=== PATIENT | female | born 1950 | race Caucasian/White ===

== ENCOUNTER 2016-11-09 10:54 | Day surgery (SDC) | payer BC ==
[~2016-11-09 10:54] MED LIST: RINGERS SOLUTION,LACTATED 1,000 ML IV PRN; ceFAZolin SODIUM 1 GM VIAL IV PRN
[2016-11-09] MEDS ORDERED: RINGERS SOLUTION,LACTATED 1,000 ML IV ONE ×2 (12:35→15:45)
[2016-11-09] MEDS ORDERED: HYDROmorphone HCL 2 MG/ML VIAL IV PRN (18:15)
[2016-11-09] MEDS ORDERED: oxyCODONE HCL/ACETAMINOPHEN 1 TAB TABLET PO PRN (18:15)
[2016-11-09] MEDS ORDERED: diphenhydrAMINE HCL 50 MG/ML VIAL IV PRN (18:46)
[2016-11-09] MEDS ORDERED: ACETAMINOPHEN 500 MG TABLET PO PRN (18:46)
[2016-11-09] MEDS ORDERED: ONDANSETRON HCL/PF 2 MG/ML VIAL IV PRN (18:47)
[2016-11-09] MEDS ORDERED: SOD PHOS M B RC PRN (18:48)
[2016-11-09] MEDS ORDERED: PROMETHAZINE HCL 25 MG in DEXTROSE 5 % IN WATER 50 ML IV PRN ×2 (18:48)
[2016-11-09] MEDS ORDERED: NA PHOS DI BA RC PRN (18:48)
[2016-11-09] MEDS ORDERED: ZOLPIDEM TARTRATE 5 MG TABLET PO PRN (18:49)
[2016-11-09] MEDS ORDERED: MAG HYDROX/ALUMINUM HYD/SIMETH 30 ML UDC PO PRN (18:50)
[2016-11-09 19:16] VITALS: BP 146/61
[2016-11-09] MEDS ORDERED: SENNOSIDES/DOCUSATE SODIUM 1 TAB TABLET PO SCH (21:00)
== END 2016-11-09 10:55 | disposition home or self-care (01) ==
LOC: AMB 10:54
PROVIDERS: ATTEND Orthopaedic Surgery
PROC: 0LMR0ZZ Reattachment of Left Knee Tendon, Open Approach (ICD-10-PCS; principal; 2016-11-09 14:15)
DX: S76.112D Strain of left quadriceps muscle, fascia and tendon, subsequent encounter (principal); I10 Essential (primary) hypertension; M06.9 Rheumatoid arthritis, unspecified; Z68.42 Body mass index [BMI] 45.0-49.9, adult